=== PATIENT | female | born 1945 | race Caucasian/White ===

== ENCOUNTER → 2016-07-05 | Day surgery (SDC) | payer OTHER ==
[~2016-07-05] MED LIST: ACETAMINOPHEN/HYDROcodone 325 MG/5 MG TAB ONE; BUPIVACAINE/EPINEPHRINE 0.25% 50 ML VIAL ONE; HYDR25 PO; LACTATED RINGER'S 1000 ML INJ 1,000 ML ONE; LIDOCAINE 1%/EPINEPHrine 1:100,000 SOLN 30 ML VIAL ONE; MIDAZOLAM HCL 2 MG/2 ML VIAL ONE; ONDANSETRON HCL 4 MG/2 ML VIAL IV PUSH ONE; PRED20 PO; PROPOFOL 200 MG/20 ML AMP IV ONE; RANI300T PO; ceFAZolin INJ 1,000 MG VIAL ONE
--- NOTE | 2016-07-05 10:13 | TN ---
cc: TRIP SOLIS M.D. [facility] DATE OF SURGERY: 07/05/2016 PREOPERATIVE DIAGNOSIS Atypical ductal hyperplasia right breast, lower outer quadrant. POSTOPERATIVE DIAGNOSIS Atypical ductal hyperplasia right breast, lower outer quadrant. PROCEDURE Needle-localized excisional lumpectomy right breast, lower outer quadrant. ANESTHESIA General. SURGEON Dr. Solis. INDICATION This is a pleasant 71-year-old female who had some abnormalities seen on mammography. This was biopsied showing atypical ductal hyperplasia, requires surgical excision. PROCEDURE The patient was taken to the operating room and placed in the supine position. After anesthesia her right breast is prepped with Betadine. She had already been down to radiology suite where the guidewire was placed in the lower outer quadrant of the right breast coursing superiorly and the lateral to medial. After prepping and draping we make a curvilinear incision near the nipple-areolar complex from approximately 6 o'clock to 9 o'clock. We dissect down to subcutaneous tissue laterally to gain access to the guidewire. The guidewire was snipped at the skin level and then it is retrieved through the incision and we dissect circumferentially around the guidewire to obtain adequate margins. No other gross abnormality seen. We did itzel the specimen with the guidewire superiorly with a short stitch and long stitch placed laterally. This was sent down to radiology for specimen mammography which Dr. Cordon states the area in question has been removed with the clip and wire in place. The area is then irrigated, hemostasis was assured with electrocautery device. We then closed the deep layer with a 4-0 Vicryl and skin is closed with 4-0 Vicryl. Steri-Strips were applied. Sterile bandage was applied. The patient tolerated the procedure well and had no immediate postop complications. Trip Solis MD JMELL/JONO /9:53 AM /9:58 AM DANILO
== END | disposition home or self-care (01) ==
LOC: ESDC 06:44
PROVIDERS: ATTEND Surgery
DX: N60.91 Unspecified benign mammary dysplasia of right breast (principal)
CPT/HCPCS: 00400; 19125; 88307; J0690; J2250; J2405; J3010; J7120